=== PATIENT | female | born 1950 | race Caucasian/White ===

== ENCOUNTER 2021-11-09 19:33 | Emergency (ER) | payer MEDICARE, MEDICAID ==
[~2021-11-09] VITALS: Ht 162.6 cm; Wt 72.7 kg
[~2021-11-09 19:33] MED LIST: CYCL-1 PO
[2021-11-09] MEDS ORDERED: acetaminophen 325mg tablet PO ONE (21:45)
[2021-11-09] MEDS ORDERED: ibuprofen tablet 400 MG TABLET PO ONE (22:05)
[2021-11-09 22:18] LABS: BASOPHILS % (AUTO) 0.4 % (0-1); EOSINOPHILS % (AUTO) 0.3 % (0-6); HEMATOCRIT 36.4 % (35.0-45.0); LYMPHOCYTES # (AUTO) 0.9 X10'3 (1.1-4.8); LYMPHOCYTES % (AUTO) 6.3 % (21-51); MEAN CORPUSCULAR HEMOGLOBIN 28.6 PG (27.0-31.0); MEAN CORPUSCULAR HGB CONC 32.9 g/dL (33.0-36.5); MEAN CORPUSCULAR VOLUME 86.8 FL (78-98); MEAN PLATELET VOLUME 8.3 FL (7.4-10.4); MONOCYTES # (AUTO) 0.6 X10'3 (0-0.9); MONOCYTES % (AUTO) 4.4 % (2-12); NEUTROPHILS # (AUTO) 12.6 X10'3 (1.8-7.7); NEUTROPHILS % (AUTO) 88.6 % (42-75); PLATELET COUNT 295 X10'3 (140-440); RED BLOOD COUNT 4.19 X10'6 (4.20-5.60); WHITE BLOOD COUNT 14.2 X10'3 (4.5-11.0)
--- NOTE | 2021-11-09 22:32 | NUR ---
DAUGHTER AT BEDSIDE
[2021-11-09 22:40] LABS: CLARITY,URINE CLEAR (Clear); COLOR,URINE YELLOW (Yellow); GLUCOSE, URINE 100 mg/dl (Neg); KETONES,URINE NEGATIVE (Neg); LEUKOCYTE ESTERASE ,URINE NEGATIVE (Neg); NITRITES, URINE NEGATIVE (Neg); OCCULT BLOOD,URINE NEGATIVE (Neg); PROTEIN,URINE NEGATIVE (Neg); UROBILINOGEN,URINE 0.2 E.U/dL (0.2-1.0)
[2021-11-09 22:43] LABS: ALANINE AMINOTRANSFERASE 35 U/L (12-78); ALBUMIN 3.5 G/DL (3.4-5.0); ALBUMIN/GLOBULIN RATIO 0.9 (1.1-1.5); ALKALINE PHOSPHATASE 128 IU/L (46-116); ANION GAP 11 (8-16); ASPARTATE AMINO TRANSFERASE 23 U/L (10-37); BILIRUBIN,TOTAL 0.9 MG/DL (0.1-1.0); BLOOD UREA NITROGEN 24 MG/DL (7-18); BUN/CREATININE RATIO 23.5 (6.6-38.0); CHLORIDE 99 MMOL/L (99-107); CREATININE 1.02 MG/DL (0.40-0.90); GLUCOSE 207 MG/DL (70-104); POTASSIUM 4.3 MMOL/L (3.5-5.1); SODIUM 135 MMOL/L (135-145); TOTAL CARBON DIOXIDE 24.8 MMOL/L (24-32); TOTAL PROTEIN 7.6 G/DL (6.4-8.2); eGFR 54 ML/MIN
[2021-11-09 22:45] LABS: UA COLLECTION TYPE CLN CATCH MIDSTREAM
[2021-11-09] MEDS ORDERED: IPRA4AER INH (22:49)
[2021-11-09] MEDS ORDERED: OMEP20CA16 PO (22:49)
[2021-11-09] MEDS ORDERED: TRIA1TAB5 PO (22:49)
[2021-11-09] MEDS ORDERED: BENA-7 PO (22:49)
[2021-11-09] MEDS ORDERED: DICL50TA8 PO (22:49)
[2021-11-09] MEDS ORDERED: METF-438 PO (22:49)
[2021-11-09] MEDS ORDERED: MELO-102 PO (22:49)
[2021-11-09] MEDS ORDERED: ALBU18HF2 (22:49)
[2021-11-09] MEDS ORDERED: ACET325T59 PO (23:04)
[2021-11-09] MEDS ORDERED: IPRA4AER IH (23:04)
[2021-11-09] MEDS ORDERED: IBUP-1985 PO (23:04)
[2021-11-09 23:14] VITALS: BP 121/67
== END 2021-11-09 23:17 | disposition home or self-care (01) ==
LOC: ER 19:34
DX: R53.1 Weakness (principal); R51.9 Headache, unspecified
CPT/HCPCS: 36415; 80053; 81003; 85025; 99284

== ENCOUNTER 2022-03-13 11:35 | Emergency (ER) | payer MEDICARE, MEDICAID ==
[~2022-03-13] VITALS: Ht 167.6 cm; Wt 73.6 kg
[~2022-03-13 11:35] MED LIST changes: +ALBU18HF2; +BENA-7 PO; -CYCL-1 PO; +DICL50TA8 PO; +IBUP-1985 PO; +IPRA4AER INH; +MELO-102 PO; +METF-438 PO; +OMEP20CA16 PO; +TRIA1TAB5 PO
[2022-03-13 11:52] VITALS: BP 165/80
[2022-03-13 12:07] LABS: BASOPHILS # (AUTO) 0.1 X10'3 (0-0.2); BASOPHILS % (AUTO) 1.7 % (0-1); EOSINOPHILS # (AUTO) 0.2 X10'3 (0-0.9); EOSINOPHILS % (AUTO) 3.3 % (0-6); HEMATOCRIT 34.8 % (35.0-45.0); HEMOGLOBIN 11.2 g/dl (12.0-16.0); LYMPHOCYTES # (AUTO) 1.6 X10'3 (1.1-4.8); LYMPHOCYTES % (AUTO) 23.5 % (21-51); MEAN CORPUSCULAR HEMOGLOBIN 27.8 PG (27.0-31.0); MEAN CORPUSCULAR HGB CONC 32.2 g/dL (33.0-36.5); MEAN CORPUSCULAR VOLUME 86.3 FL (78-98); MEAN PLATELET VOLUME 8.6 FL (7.4-10.4); MONOCYTES # (AUTO) 0.7 X10'3 (0-0.9); MONOCYTES % (AUTO) 10.4 % (2-12); NEUTROPHILS # (AUTO) 4.2 X10'3 (1.8-7.7); NEUTROPHILS % (AUTO) 61.1 % (42-75); PLATELET COUNT 309 X10'3 (140-440); RED BLOOD COUNT 4.04 X10'6 (4.20-5.60); RED CELL DISTRIBUTION WIDTH 15.5 % (11.5-14.5); WHITE BLOOD COUNT 6.8 X10'3 (4.5-11.0)
[2022-03-13 12:23] LABS: ALANINE AMINOTRANSFERASE 18 U/L (12-78); ALBUMIN 3.5 G/DL (3.4-5.0); ALBUMIN/GLOBULIN RATIO 0.9 (1.1-1.5); ALKALINE PHOSPHATASE 107 IU/L (46-116); ASPARTATE AMINO TRANSFERASE 19 U/L (10-37); BILIRUBIN,TOTAL 0.9 MG/DL (0.1-1.0); BLOOD UREA NITROGEN 19 MG/DL (7-18); BUN/CREATININE RATIO 17.8 (6.6-38.0); CALCIUM 8.9 MG/DL (8.5-10.1); CHLORIDE 102 MMOL/L (99-107); CREATININE 1.07 MG/DL (0.40-0.90); GLUCOSE 85 MG/DL (70-104); MAGNESIUM 1.5 MG/DL (1.5-2.4); POTASSIUM 4.2 MMOL/L (3.5-5.1); TOTAL PROTEIN 7.4 G/DL (6.4-8.2); eGFR 51 ML/MIN
[2022-03-13 12:44] LABS: ANION GAP 10 (8-16); SODIUM 139 MMOL/L (135-145)
== END 2022-03-13 23:20 | disposition left against medical advice (07) ==
LOC: ER 11:35
DX: R07.89 Other chest pain (principal); Z53.21 Procedure and treatment not carried out due to patient leaving prior to being seen by health care provider
CPT/HCPCS: 36415; 71045; 80053; 83735; 83880; 84484; 85025; 93005

== ENCOUNTER 2022-04-29 07:38 | Inpatient (IN) | payer MEDICARE, MEDICAID ==
[2022-04-22 13:55] LABS: BASOPHILS # (AUTO) 0.1 X10'3 (0-0.2); EOSINOPHILS # (AUTO) 0.2 X10'3 (0-0.9); EOSINOPHILS % (AUTO) 2.4 % (0-6); LYMPHOCYTES # (AUTO) 1.3 X10'3 (1.1-4.8); LYMPHOCYTES % (AUTO) 19.4 % (21-51); MEAN CORPUSCULAR HEMOGLOBIN 27.1 PG (27.0-31.0); MEAN CORPUSCULAR HGB CONC 31.3 g/dL (33.0-36.5); MEAN CORPUSCULAR VOLUME 86.6 FL (78-98); MEAN PLATELET VOLUME 8.4 FL (7.4-10.4); MONOCYTES # (AUTO) 0.6 X10'3 (0-0.9); NEUTROPHILS # (AUTO) 4.8 X10'3 (1.8-7.7); NEUTROPHILS % (AUTO) 69.2 % (42-75); PRE OP HEMATOCRIT 35.2 % (35.0-45.0); PRE OP PLATELET COUNT 319 X10'3 (140-440); RED BLOOD COUNT 4.06 X10'6 (4.20-5.60); RED CELL DISTRIBUTION WIDTH 15.7 % (11.5-14.5)
[2022-04-22 14:16] LABS: ALBUMIN 3.9 G/DL (3.4-5.0); ALBUMIN/GLOBULIN RATIO 1.1 (1.1-1.5); ALKALINE PHOSPHATASE 116 IU/L (46-116); BLOOD UREA NITROGEN 19 MG/DL (7-18); BUN/CREATININE RATIO 19.2 (6.6-38.0); CALCIUM 9.1 MG/DL (8.5-10.1); CHLORIDE 102 MMOL/L (99-107); CREATININE 0.99 MG/DL (0.40-0.90); PRE OP ALT 20 U/L (30-65); PRE OP ANION GAP 9 (8-16); PRE OP AST 23 U/L (10-37); PRE OP BILIRUB, TOTAL 0.5 MG/DL (0.0-1.0); PRE OP GLUCOSE 98 MG/DL (70-104); PRE OP POTASSIUM 3.7 MMOL/L (3.4-5.1); PRE OP SODIUM 140 MMOL/L (135-145); TOTAL CARBON DIOXIDE 28.6 MMOL/L (24-32); TOTAL PROTEIN 7.5 G/DL (6.4-8.2); eGFR 55 ML/MIN
[2022-04-22 14:35] LABS: HEMOGLOBIN A1C 6.3 % (4.5-6.2)
[~2022-04-29] VITALS: Ht 152.4 cm; Wt 72.1 kg
[2022-04-29] VITALS (29 sets, daily range): BP systolic 80–134; BP diastolic 43–76
[2022-04-29] MEDS: potassium cl 20mEq in 1/2 NS 1,000 ML IV SCH ×3 (06:45→22:45)
[~2022-04-29 07:38] MED LIST changes: -ALBU18HF2; +ALBU18HF2 PO; +DEXTROSE 15 GM of carb/4 tabs (each vial/BOTTLE has 4 tablets) PO PRN; -DICL50TA8 PO; +HYDROcodone/acetaminophen 10/325mg tab PO PRN; +HYDROmorphone 1 mg/ml syringe IV PRN; +HYDROmorphone inj. 0.5 MG/0.5 ML DISP.SYRIN IV PRN; -IBUP-1985 PO; -MELO-102 PO; +MESSAGE TO PHARMACY PO ONE; -OMEP20CA16 PO; +acetaminophen 325mg tablet PO ONE; +acetaminophen 325mg tablet PO PRN; +albuterol 2.5 MG/3 ML nebule NEB ONE; +bisacodyl 10mg suppository rectal RC PRN; +ceFAZolin inj. 2,000 MG in dextrose 5%-water 100 ML IV ONE; +celeCOXIB 100mg capsule PO ONE; +dextrose 50%-water 50ml dispensing syringe IV PRN; +diphenhydrAMINE 25mg capsule PO PRN; +famotidine 20mg tablet PO ONE; +gabapentin 300mg capsule PO ONE; +glucagon, human recombinant 1mg kit SUBCUT PRN; +insulin Lispro (HumaLOG) vial - multi-dose SQ SCH; +magnesium hydroxide 30ml (MOM) UD suspension PO PRN; +metoclopramide 5 mg/ml inj IV ONE; +naloxone 0.4 mg/ml inj IV PRN; +ondansetron/PF 4mg/2ml inj IV PRN; +oxyCODONE SR 10mg (sust. release) tab -2 tabs (20mg) PO ONE; +ringers solution, lacted 1,000 ML IV SCH; +tranexamic acid inj. 1,000 MG in normal saline IV soln 100ML IV ONE; +vancomycin 1,500 MG in NS 300ml IV soln IV ONE
--- NOTE | 2022-04-29 07:50 | NUR ---
TOTAL JOINT CHARTING: DOES NOT ORDER MUPIROCIN OINTMENT. DID COMPETED HIBICLENS SHOWERS FOR 5 DAYS. [facility]'S WNL, LEFT PEDAL PULSE STRONG, MARKED. DID NOT READ THE BOOKLET Addendum: 04/29/22 at 1038 by Tiana Teixeira RN Amended: Links added.
[2022-04-29] MEDS ORDERED: ondansetron/PF 4mg/2ml inj IV PRN (09:00)
[2022-04-29] MEDS ORDERED: fentaNYL/PF 50MCG/1 ML 2ML syringe IV PRN ×2 (09:00)
[2022-04-29] MEDS ORDERED: morphine 4 MG/ML inj SYRINge IV PRN (09:00)
[2022-04-29] MEDS ORDERED: labetalol 20mg/4ml (5mg/ml) syringe IV PRN (09:00)
[2022-04-29] MEDS ORDERED: hydrALAZINE 20mg/ml inj. IV PRN (09:00)
[2022-04-29] MEDS ORDERED: ringers solution, lacted 1,000 ML IV SCH (09:00)
[2022-04-29] MEDS ORDERED: morphine 2 MG/ML inj. syringe IV PRN (09:00)
[2022-04-29] MEDS ORDERED: cloNIDine hcl/PF 100mcg/ml inj ONE (09:31)
[2022-04-29] MEDS ORDERED: epiNEPHrine 1 mg/ml inj ONE (09:31)
[2022-04-29] MEDS ORDERED: vancomycin 1,000mg inj ONE (09:31)
[2022-04-29] MEDS ORDERED: ROPIVAcaine 0.5% (5mg/ml) 30ml vial ONE ×2 (09:31→11:08)
[2022-04-29] MEDS ORDERED: MIDAZolam 1mg/ml 10ml vial ONE (09:48)
[2022-04-29] MEDS ORDERED: fentaNYL/PF 50MCG/1 ML 2ML syringe ONE (09:49)
[2022-04-29] MEDS ORDERED: ROPIVAcaine 0.2%/PF PUMP/bolus 545 ML ADDCANAL SCH (10:15)
[2022-04-29] MEDS ORDERED: ROPIVAcaine 0.2% (10 MG/5 ML) BOLUS INJECTION ADDCANAL PRN (10:15)
[2022-04-29] MEDS ORDERED: albumin (Human) 5% 250ml 250 ML IV ONE ×2 (10:49→10:56)
[2022-04-29] MEDS ORDERED: phenylephrine 10mg/ml inj. -priapism dosing ONE (10:58)
--- NOTE | 2022-04-29 11:45 | NUR ---
Received from OR via , accompanied by Anesthesiologist CHOLO AND OR NURSE and report given by Anesthesiolgist. PT IS DROWSY AND RESPONDS TO VERBAL STIMULI. 20G IN LEFT HAND. 02 ON 6LPM VIA MASK. LT KNEE WITH MELIA AND PWDR PACK AND ONQ CATHETER. VSS Addendum: 04/29/22 at 1211 by Desirae Phan RN Amended: Links added.
[2022-04-29] MEDS ORDERED: albuterol 2.5 MG/3 ML nebule NEB PRN (14:00)
--- NOTE | 2022-04-29 14:45 | NUR ---
PATIENT TAKEN TO ORTHO FLOOR ROOM WITH ALL BELONGINGS AND HOOKED UP TO ALL MONITORS IN ROOM AND REPORT GIVEN TO RN WHO HAS TAKEN OVER PATIENT CARE. Addendum: 04/29/22 at 1604 by Desirae Phan RN Amended: Links added.
[2022-04-29] MEDS: ipratropium/albuterol 3ml nebule NEB SCH ×2 (15:00→19:00)
[2022-04-29] MEDS ORDERED: tranexamic acid inj. 720 MG in normal saline 100ml IV soln 92.8 ML IV ONE (16:30)
[2022-04-29] MEDS: ceFAZolin/D5W- 1GM premix 50 ML IV SCH ×2 (17:55→23:57)
[2022-04-29] MEDS: HYDROcodone/acetaminophen 10/325mg tab PO PRN ×2 (19:13→23:55)
[2022-04-29] MEDS ORDERED: vancomycin/NS 1 GM ADD-VANTAGE 250 ML IV SCH (20:00)
[2022-04-29] MEDS: ascorbic acid 500mg tablet PO SCH (20:28)
[2022-04-29] MEDS: gabapentin 300mg capsule PO SCH (20:29)
[2022-04-29] MEDS ORDERED: sennosides 8.6mg tablet PO SCH (21:00)
[2022-04-29] MEDS ORDERED: diphenhydrAMINE 25mg capsule PO PRN (21:00)
[2022-04-29] MEDS ORDERED: insulin glargine (Lantus) pen - multi-dose SQ SCH (21:00)
[2022-04-30 02:00] VITALS: BP 118/61
[2022-04-30 05:00] LABS: BASOPHILS % (AUTO) 0.4 % (0-1); EOSINOPHILS # (AUTO) 0.1 X10'3 (0-0.9); EOSINOPHILS % (AUTO) 1.9 % (0-6); HEMATOCRIT 28.7 % (35.0-45.0); HEMOGLOBIN 9.3 g/dl (12.0-16.0); LYMPHOCYTES # (AUTO) 0.8 X10'3 (1.1-4.8); LYMPHOCYTES % (AUTO) 11.3 % (21-51); MEAN CORPUSCULAR HEMOGLOBIN 28.1 PG (27.0-31.0); MEAN CORPUSCULAR HGB CONC 32.6 g/dL (33.0-36.5); MEAN CORPUSCULAR VOLUME 86.2 FL (78-98); MEAN PLATELET VOLUME 8.7 FL (7.4-10.4); MONOCYTES # (AUTO) 0.7 X10'3 (0-0.9); MONOCYTES % (AUTO) 9.2 % (2-12); NEUTROPHILS # (AUTO) 5.6 X10'3 (1.8-7.7); NEUTROPHILS % (AUTO) 77.2 % (42-75); PLATELET COUNT 239 X10'3 (140-440); RED BLOOD COUNT 3.33 X10'6 (4.20-5.60); RED CELL DISTRIBUTION WIDTH 15.7 % (11.5-14.5); WHITE BLOOD COUNT 7.3 X10'3 (4.5-11.0)
[2022-04-30 05:09] LABS: ANION GAP 7 (8-16); CHLORIDE 102 MMOL/L (99-107); POTASSIUM 3.6 MMOL/L (3.5-5.1); SODIUM 136 MMOL/L (135-145); TOTAL CARBON DIOXIDE 27.2 MMOL/L (24-32)
[2022-04-30] MEDS: HYDROcodone/acetaminophen 10/325mg tab PO PRN (05:59)
[2022-04-30 06:00] VITALS: BP 135/68
[2022-04-30] MEDS: potassium cl 20mEq in 1/2 NS 1,000 ML IV SCH (06:45)
[2022-04-30] MEDS: ipratropium/albuterol 3ml nebule NEB SCH ×2 (07:17→11:05)
--- NOTE | 2022-04-30 07:30 | NUR ---
Patient feeling nauseous and would like to take po daily meds later this am.
[2022-04-30] MEDS ORDERED: triamterene/HCTZ 37.5/25mg tablet PO SCH (08:00)
[2022-04-30] MEDS ORDERED: multivitamins, therapeutics tablet PO SCH (08:00)
[2022-04-30] MEDS ORDERED: lisinopril 20mg tablet PO SCH (08:00)
[2022-04-30] MEDS ORDERED: aspirin 325mg tablet PO SCH (08:30)
[2022-04-30 10:00] VITALS: BP 129/64
--- NOTE | 2022-04-30 11:00 | NUR ---
Joint surgery consult: Pt s/p L knee surgery this admit per EMR. Pt Armenian speaking only; family contacted during RD visit able to translate via TC. RD provided written/verbal high protein diet ed w/ RD contact information to pt/family; written ed left in chart so family can translate again if needed at home. RD encouraged pt/family to contact dietitian's office if further nutrition questions/concerns. Addendum: 04/30/22 at [address] Amended: Links added.
--- NOTE | 2022-04-30 11:00 | NUR ---
am meds given late per patient request secondary to nausea earlier
[2022-04-30] MEDS: gabapentin 300mg capsule PO SCH (11:24)
[2022-04-30] MEDS: ascorbic acid 500mg tablet PO SCH (11:24)
[2022-04-30 11:27] VITALS: BP_SYST 129
--- NOTE | 2022-04-30 11:35 | NUR ---
Patient states she is feeling better and would like to go home. Will prepare dc papers.
[2022-04-30] MEDS ORDERED: celeCOXIB 100mg capsule PO SCH (20:00)
== END 2022-04-30 13:20 | disposition home or self-care (01) | DRG 470 ==
LOC: PAS 07:38 → ORTHO 4S 14:45 → PAS 16:05 → ORTHO 4S 16:05
PROVIDERS: ADMIT Orthopaedic Surgery; ATTEND Orthopaedic Surgery
PROC: 3E0T3BZ Introduction of Anesthetic Agent into Peripheral Nerves and Plexi, Percutaneous Approach (ICD-10-PCS; 2022-04-29)
PROC: 3E0T33Z Introduction of Anti-inflammatory into Peripheral Nerves and Plexi, Percutaneous Approach (ICD-10-PCS; 2022-04-29)
PROC: 0SRD069 Replacement of Left Knee Joint with Oxidized Zirconium on Polyethylene Synthetic Substitute, Cemented, Open Approach (ICD-10-PCS; principal; 2022-04-29 09:45)
DX: M17.12 Unilateral primary osteoarthritis, left knee (principal); R11.0 Nausea; Z79.84 Long term (current) use of oral hypoglycemic drugs; Z79.899 Other long term (current) drug therapy
CPT/HCPCS: 36415; 71046; 73560; 80051; 80053; 82948; 83036; 85025; 86885; 86900; 86901; 87081; 94640; 94760; 97110; 97116; 97161; 97530; A4215; A7000; C1713; C1776; G0378; J0171; J0690; J0735; J1815; J2250; J2370; J2405; J2765; J2795; J3010; J3370; J3480; J3490; J7040; J7060; J7120; P9045